=== PATIENT | female | born 1930 | race Caucasian/White ===

== ENCOUNTER → 2017-10-07 | Outpatient (CLI) | payer OTHER | LOC: FIMAGING 11:20 | PROVIDERS: ATTEND Physician Assistant Medical | DX: Z13.820 Encounter for screening for osteoporosis (principal); M81.0 Age-related osteoporosis without current pathological fracture ==

== ENCOUNTER 2018-05-19 21:06 | Emergency (ER) | payer OTHER ==
[2018-05-19 21:14] VITALS: BP 111/57
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
== END 2018-05-19 21:50 | disposition home or self-care (01) ==
LOC: CED 21:06
PROC: 0HQ0XZZ Repair Scalp Skin, External Approach (ICD-10-PCS; principal; 2018-05-19)
DX: S01.01XA Laceration without foreign body of scalp, initial encounter (principal); W22.8XXA Striking against or struck by other objects, initial encounter; Y99.8 Other external cause status; Y93.89 Activity, other specified

== ENCOUNTER 2018-09-17 15:21 | Emergency (ER) | payer OTHER ==
[2018-09-17] MEDS ORDERED: ACETAMINOPHEN 500 MG TAB PO ONE (15:53)
--- NOTE | 2018-09-17 16:11 | EDPHY ---
H & P Time Seen by Provider: 09/17/18 15:52 HPI/ROS: CHIEF COMPLAINT: Right foot and ankle pain HISTORY OF PRESENT ILLNESS: A 8-year-old female presents emergency department reporting that earlier today, at 1:00 a.m., she stood up from her chair and felt a sudden popping, tearing sensation across the dorsum of her right ankle. She had noticed that this ankle and foot was somewhat stiff and has been bothering her for the last week after doing some house cleaning at her son's home. She has noticed some swelling across the foot. She had no direct trauma to the foot or twisting mechanism. She returned from [place] where her son lives 3 days ago. Currently, it does not hurt to walk on the foot but hurts when she dorsiflexes it. She denies any erythema across the foot or warmth. She denies any fever. She has had no pain in her calf. No problems with plantar flexion. No recent antibiotics. No history of arthritis or gout. No fever, chills, chest pain, shortness of breath, palpitations, vomiting, diarrhea, urinary complaints, headache, lightheadedness. REVIEW OF SYSTEMS: A comprehensive 10 system review of systems was reviewed and is otherwise negative aside from elements mentioned in the history of present illness. PAST MEDICAL HISTORY: History of osteoporosis with multiple joint replacements. Patient takes tramadol on a regular basis for muscle pain. SOCIAL HISTORY: Lives in independently quite active, nonsmoker. GENERAL APPEARANCE: Pleasant, well-developed, well-nourished, in mild distress. FOCUSED EXAM OF right lower extremity: Full range of motion at the knee, no trauma, no swelling, no edema. No tenderness to palpation across tib-fib, calf compartment is soft. No tenderness to palpation on the dorsum of the ankle or foot. Mild swelling across the dorsum of the foot with mild erythema. Questionable warmth. No pain with passive range of motion at the joint. Normal plantar flexion with normal Achilles tendon palpable. Discomfort with active dorsiflexion Neurovascular exam: Good capillary refill, normal motor exam, normal neurologic exam. Smoking Status: Never smoked Constitutional: Initial Vital Signs Temperature (C) 37.1 C 09/17/18 15:35 Heart Rate 62 09/17/18 15:35 Respiratory Rate 18 09/17/18 15:35 Blood Pressure 173/77 H 09/17/18 15:35 O2 Sat (%) 93 09/17/18 15:35 O2 Delivery Mode Room Air Allergies/Adverse Reactions: No Known Allergies Allergy (Verified 09/17/18 15:38) Home Medications: Medication Instructions Recorded ALPRAZolam [Xanax 1 MG (*)] 05/19/18 traMADol [Ultram 50 mg (*)] 05/19/18 Lexapro 06/19/18 Cephalexin [Keflex (RX)] 500 mg PO QID 5 Days cap 09/17/18 MDM/Departure - [facility] Imaging Results: Imaging Impressions Ankle X-Ray 09/17/18 15:53 Impression: 1. No acute osseous abnormality seen about the right ankle and foot. 2. Degenerative changes associated with the first interphalangeal joint and MCP joint. 3. Punctate calcifications posterior ankle joint could represent calcific fragments/osteochondromatosis. 4. Mild bunion distal head of the first metatarsal with mild hallux valgus. 5. Soft tissue swelling along the medial aspect of the forefoot suggestive of cellulitis without underlying gas formation. Clinical correlation suggested. Foot X-Ray 09/17/18 15:54 Impression: 1. No acute osseous abnormality seen about the right ankle and foot. 2. Degenerative changes associated with the first interphalangeal joint and MCP joint. 3. Punctate calcifications posterior ankle joint could represent calcific fragments/osteochondromatosis. 4. Mild bunion distal head of the first metatarsal with mild hallux valgus. 5. Soft tissue swelling along the medial aspect of the forefoot suggestive of cellulitis without underlying gas formation. Clinical correlation suggested. Imaging: I viewed and interpreted images myself Medications Given: Discontinued Medications Acetaminophen (Tylenol) 1,000 mg PO EDNOW ONE Stop: 09/17/18 15:54 Last Admin: 09/17/18 15:58 Dose: 1,000 mg ED Course/Re-evaluation: 88-year-old female with a history of discomfort in her ankle and foot for about a week after doing some housework, now presenting with significant pain with dorsiflexion which developed abruptly today. Patient has minimal erythema and swelling on examination. No joint effusion identified. No pain with passive range of motion at the joint. No bony tenderness on exam. X-rays of the ankle and foot were negative for any acute bony findings. Plan at this point is to start the patient on Keflex for mild cellulitis given the swelling and slight warmth and slight erythema. She also was instructed regarding rest, elevation, ice, and compression. She will follow up with her primary care physician if she is not improving as expected with the above treatments. We did discuss possibilities of a joint effusion, acute gout, septic joint and discussed reasons to return to the emergency for seek care urgently. Differential Diagnosis: Differential diagnoses for the patient's symptom complex was considered including but not limited to fracture, sprain, ligamentous strain, joint effusion, septic joint, acute joint effusion, muscle strain. - Depart Disposition: Home, Routine, Self-Care Clinical Impression: Right ankle sprain Qualifiers: Encounter type: initial encounter Involved ligament of ankle: unspecified ligament Qualified Code(s): S93.401A - Sprain of unspecified ligament of right ankle, initial encounter Ankle pain, right Qualifiers: Chronicity: acute Qualified Code(s): M25.571 - Pain in right ankle and joints of right foot Cellulitis Qualifiers: Site of cellulitis: extremity Site of cellulitis of extremity: lower extremity Laterality: right Qualified Code(s): L03.115 - Cellulitis of right lower limb Condition: Good Instructions: Swollen Ankle Joint (ED), Ankle Strain (ED) Additional Instructions: 1. Please continue to use tramadol as needed for your ankle pain. You may and Tylenol 650-1000 mg every 4-6 hours, not to exceed 3000 mg in a day. 2. Apply ice to the top of the ankle every 2-3 hours for 20-30 minutes. 3. Please take antibiotics as directed to treat for any early infection. 4. Apply an [place] wrap as needed for compression and to assist with stability. 5. Wear the postoperative shoe if it helps her foot feel better when walking. 6. Please follow up with primary care physician for re-examination within the next 2-3 days, and be seen sooner if you are worsening. If you develop a fever , significant swelling across the ankle joint, difficulty moving the ankle in any direction, redness spreading up the leg, or other concerns, please return to the emergency department or seek care urgently. Prescriptions: Cephalexin [Keflex (RX)] 500 mg PO QID 5 Days cap Referrals: Jurgen Murillo MD [Primary Care Provider] - As per Instructions
[2018-09-17 17:16] VITALS: BP 157/68
== END 2018-09-17 17:05 | disposition home or self-care (01) ==
LOC: CED 15:21
DX: S93.401A Sprain of unspecified ligament of right ankle, initial encounter (principal); L03.115 Cellulitis of right lower limb; Y93.9 Activity, unspecified; Y92.9 Unspecified place or not applicable
CPT/HCPCS: 73610; 73630; 99283; L4386

== ENCOUNTER 2018-11-02 15:14 | Emergency (ER) | payer OTHER ==
--- NOTE | 2018-11-02 16:10 | EDPHY ---
H & P Time Seen by Provider: 11/02/18 15:19 HPI/ROS: This patient injured her left hand. She explains that she took a short cut off of the sidewalk cross some landscaping at a family member's home and just before she reached the sidewalk she tripped-mechanical fall and landed on the dorsum of her left hand. She also struck her chin but does not feel she has a significant injury to the chin. She denies any other injuries. She reports minimal to no pain at the chin only mild tenderness at the site of bruising- left mandible area but has moderate pain to the dorsum of her left hand that worsens with movement to a peak of 7/10 intensity. She takes meloxicam and tramadol daily for osteoarthritis and reports some relief from this of the hand pain and no other exacerbating factors. The incident occurred 2 days prior to arrival in her daughter brought her in for evaluation due to increase in swelling in the hand over that course of time. ROS: Neuro: No LOC. She does not have a headache. She denies any numbness or tingling HEENT: No difficulty chewing food-no mandible pain. Musculoskeletal: No midline neck or back pain. No other extremity injuries Integumentary: No lacerations or abrasions Pulmonary: No chest wall pain. GI: No belly pain nausea or vomiting 7 point review of symptoms is performed and otherwise negative with exception of pertinent positives and negatives listed in HPI and ROS Smoking Status: Never smoked Physical Exam: Physical Exam Vital signs are normal. General: Pleasant 88-year-old female appears younger than her stated age No acute distress HEENT: Atraumatic except for contusion to the left mandible with no significant underlying tenderness. No tenderness to the TMJ. No malocclusion. Oral exam reveals no dental trauma or intraoral lacerations. She also has a mild contusion to the left zygoma but no significant tenderness to the zygoma and no periorbital findings. Eyes: Pupils equal and react to light. Extraocular motions are intact. Neck: No midline tenderness Lungs: No respiratory distress. She has no chest wall tenderness Back: No midline tenderness Abdomen: Soft nontender Cardiac: Brisk capillary refill is intact throughout. Pulses are 2+ and symmetric in the affected extremity. Extremities: Atraumatic normal except for left upper extremity Left upper extremity: Patient has moderate swelling to the dorsum of her left hand with mild tenderness to the metacarpals diffusely. She has mild swelling to the left 3rd finger PIP joint and tenderness. Slight limitation range of motion flexion but no laxity. No associated wrist swelling or tenderness, elbow swelling or tenderness or shoulder swelling or tenderness. Skin: No rash or pallor. No lacerations abrasions Neuro: GCS 15. She has normal sensory and motor exam in her extremities Initial differential diagnosis: Mandible contusion, facial contusion, traumatic hand hematoma versus fracture, finger sprain versus fracture Constitutional: Initial Vital Signs Temperature (C) 36.9 C 11/02/18 15:23 Heart Rate 61 11/02/18 15:23 Respiratory Rate 16 11/02/18 15:23 Blood Pressure 152/69 H 11/02/18 15:23 O2 Sat (%) 92 11/02/18 15:23 O2 Delivery Mode Room Air Allergies/Adverse Reactions: No Known Allergies Allergy (Verified 11/02/18 15:28) Home Medications: Medication Instructions Recorded ALPRAZolam [Xanax 1 MG (*)] 05/19/18 traMADol [Ultram 50 mg (*)] 05/19/18 Lexapro 06/19/18 Meloxicam 11/02/18 MDM/Departure - MDM Diagnostics: Hand x-rays: I initially read this as negative for acute fracture, however noted the radiologist read of proximal metacarpal fractures which I then appreciated on the hand x-ray. Imaging Results: Imaging Impressions Hand X-Ray 11/02/18 15:37 Impression: 1. Acute nondisplaced fractures base of 3rd and 4th metacarpals. 2. Severe CPPD arthropathy. ED Course/Re-evaluation: Patient declined any analgesics Splinting: Our tech placed the patient Ortho Glass volar short-arm splint with my supervision. The patient is neurovascularly intact post splint application Discussion: Pleasant 88-year-old female with a mechanical fall and facial contusions without evidence of significant head injury, neck injury or other red flag findings who has nondisplaced 3rd 4th metacarpal fractures. I counseled patient and daughter regarding this in some detail. They will follow up with orthopedic physician this week and understand the need to return emergency department should she develop additional symptoms or worsening symptoms despite treatment plan of continuing her analgesics and taking Tylenol in addition if needed - Depart Disposition: Home, Routine, Self-Care Clinical Impression: Traumatic hematoma of hand Qualifiers: Encounter type: initial encounter Laterality: left Qualified Code(s): S60.222A - Contusion of left hand, initial encounter Finger sprain Qualifiers: Encounter type: initial encounter Finger: middle finger Sprain of finger site: interphalangeal joint Laterality: left Qualified Code(s): S63.633A - Sprain of interphalangeal joint of left middle finger, initial encounter Metacarpal bone fracture Qualifiers: Encounter type: initial encounter Metacarpal bone: unspecified metacarpal Fracture type: closed Metacarpal location: base Fracture morphology: unspecified fracture morphology Fracture alignment: nondisplaced Qualified Code( s): S62.349A - Nondisplaced fracture of base of unspecified metacarpal bone, initial encounter for closed fracture Condition: Good Instructions: Finger Sprain (ED), Hematoma (ED) Additional Instructions: Diagnoses: 1. 3rd and 4th metacarpal fractures 2. Finger sprain Plan: Keep splint on at all times-clean and dry Tylenol for discomfort and continue your other pain medications. Return for any significant worsening despite treatment plan On Saturday, call your orthopedic physician or Dr. Duvall to arrange follow-up appointment for recheck on Saturday or so. Bring a disc copy of your x-ray three-view with the orthopedic physician. They will likely place you and a cast at that time Referrals: Jurgen Murillo MD [Primary Care Provider] - As per Instructions Seng Duvall MD [Medical Doctor] - As per Instructions
[2018-11-02 17:12] VITALS: BP 161/91
== END 2018-11-02 16:50 | disposition home or self-care (01) ==
LOC: CED 15:14
PROC: 2W3FX1Z Immobilization of Left Hand using Splint (ICD-10-PCS; principal; 2018-11-02)
DX: S62.343A Nondisplaced fracture of base of third metacarpal bone, left hand, initial encounter for closed fracture (principal); S62.345A Nondisplaced fracture of base of fourth metacarpal bone, left hand, initial encounter for closed fracture; S63.633A Sprain of interphalangeal joint of left middle finger, initial encounter; S60.222A Contusion of left hand, initial encounter; W19.XXXA Unspecified fall, initial encounter; Y92.9 Unspecified place or not applicable; Y93.9 Activity, unspecified
CPT/HCPCS: 73130-PO